=== PATIENT | female | born 1980 | race Caucasian/White ===

== ENCOUNTER 2017-12-11 15:00 | Inpatient (IN) | payer OTHER ==
[~2017-12-11] VITALS: Ht 167.6 cm; Wt 94.3 kg
[2018-01-24] MEDS ORDERED: PRENATAL 19 TA1 EAC1 PO (05:15)
== END 2018-01-27 12:33 | DRG 775 ==
LOC: OB/GYN 15:00 → LDR 01-24 05:06 → OB/GYN 01-24 11:46
PROC: 10E0XZZ Delivery of Products of Conception, External Approach (ICD-10-PCS; principal; 2018-01-24)
PROC: 0UQGXZZ Repair Vagina, External Approach (ICD-10-PCS; 2018-01-24)
PROC: 4A033R1 Measurement of Arterial Saturation, Peripheral, Percutaneous Approach (ICD-10-PCS; 2018-01-24)
PROC: 4A1HXCZ Monitoring of Products of Conception, Cardiac Rate, External Approach (ICD-10-PCS; 2018-01-24)
DX: O48.0 Post-term pregnancy (principal); O71.4 Obstetric high vaginal laceration alone; Z3A.40 40 weeks gestation of pregnancy; O69.1XX0 Labor and delivery complicated by cord around neck, with compression, not applicable or unspecified; Z37.0 Single live birth; O09.523 Supervision of elderly multigravida, third trimester